=== PATIENT | male | born 1970 | race Two or more races ===

== ENCOUNTER 2018-08-13 02:23 | Emergency (ER) | payer MEDICAID, OTHER ==
[~2018-08-13] VITALS: Ht 177.8 cm; Wt 74.8 kg
[2018-08-13] MEDS ORDERED: KETOROLAC TROMETHAMINE INJ 30 MG/ML VIAL ONE (02:37)
[2018-08-13] MEDS ORDERED: ONDANSETRON HCL/PF 4 MG/2 ML VIAL ONE (02:38)
[2018-08-13] MEDS ORDERED: HYDROMORPHONE 1 MG/1 ML DISP.SYRIN ONE (02:38)
--- NOTE | 2018-08-13 02:50 | NUR ---
PT BIBS. COMP OF "L SIDE FLANK PAIN X2 DAYS, GETTING WORSE TODAY" -SOB, +N/V -DIZZINESS. -AUCTE DISTRESS. AWAITING MD DENG.
[2018-08-13 02:51] LABS: BASOPHILS # (AUTO) 0.1 /CMM (0.0-0.2); BASOPHILS % (AUTO) 1.1 % (0.0-2.0); EOSINOPHILS % (AUTO) 4.7 % (0.0-6.0); HEMATOCRIT 43 % (39-51); HEMOGLOBIN 14.5 g/dL (13.5-17.5); LYMPHOCYTES # (AUTO) 2.6 /CMM (0.8-4.8); LYMPHOCYTES % (AUTO) 33.1 % (20.0-44.0); MEAN CORPUSCULAR HGB CONC 34 g/dl (31.0-36.0); MEAN CORPUSCULAR VOLUME 91 fL (80-96); MONOCYTES # (AUTO) 0.8 /CMM (0.1-1.30); MONOCYTES % (AUTO) 10.2 % (2.0-12.0); NEUTROPHILS % (AUTO) 50.9 % (43.0-81.0); PLATELET COUNT (AUTO) 287 /CMM (150-450); RED BLOOD CELL COUNT(AUTO) 4.68 MIL/uL (4.5-6.0); WHITE BLOOD COUNT (AUTO) 7.9 K/uL (4.3-11.0)
[2018-08-13 02:51] LABS: APPEARANCE,URINE SL CLOUDY (CLEAR); BILIRUBIN,URINE NEGATIVE (NEGATIVE); BLOOD, URINE 3+ Ery/uL (NEGATIVE); COLOR,URINE YELLOW (YELLOW); KETONES,URINE NEGATIVE (NEGATIVE); LEUKOCYTE ESTERASE ,URINE NEGATIVE (NEGATIVE); NITRITE, URINE NEGATIVE (NEGATIVE); PROTEIN,URINE TRACE mg/dl (NEGATIVE); UGLUCOSE NEGATIVE (NEGATIVE); UROBILINOGEN,URINE 0.2 EU/dL (0.2)
[2018-08-13 03:00] LABS: BACTERIA,URINE Few /HPF (None Seen); RBC,URINE TOO NUMEROUS TO COUN /HPF (0-2); SQUAMOUS EPITHELIAL CELL,UR Rare /HPF (None Seen)
[2018-08-13] MEDS ORDERED: ONDANSETRON HCL/PF 4 MG/2 ML VIAL IVP ONE (03:00)
[2018-08-13] MEDS ORDERED: IV NS 0.9% 1,000 ML BAG IV ONE (03:00)
[2018-08-13] MEDS ORDERED: HYDROMORPHONE INJ 2 MG/ML DISP.SYRIN IV ONE (03:00)
[2018-08-13] MEDS ORDERED: KETOROLAC TROMETHAMINE INJ 30 MG/ML VIAL IV ONE (03:00)
[2018-08-13 03:06] LABS: CALCIUM, SERUM 8.9 mg/dL (8.5-10.1); CREATININE 1.1 mg/dL (0.6-1.3); POTASSIUM 3.6 mmol/L (3.5-5.1)
[2018-08-13 03:12] LABS: ALBUMIN 4.1 g/dL (3.4-5.0); BILIRUBIN,DIRECT 0.2 mg/dL (0.0-0.2); BILIRUBIN,TOTAL 1.1 mg/dL (0.2-1.0); TOTAL PROTEIN, SERUM 7.8 g/dL (6.4-8.2)
[2018-08-13] MEDS ORDERED: TAMSULOSIN 0.4 MG CAP.SR.24H ONE (04:28)
[2018-08-13] MEDS ORDERED: TAMSULOSIN 0.4 MG CAP.SR.24H PO ONE (04:30)
[2018-08-13 04:34] VITALS: BP 128/88
== END 2018-08-13 04:35 | disposition home or self-care (01) ==
LOC: ER 02:25
DX: N20.2 Calculus of kidney with calculus of ureter (principal)
CPT/HCPCS: 36415; 80048-TC; 80076-TC; 81000-TC; 83690-TC; 85025-TC; J1170; J1885; J2405; J7030

== ENCOUNTER 2020-12-17 00:20 | Emergency (ER) | payer OTHER ==
[~2020-12-17] VITALS: Ht 177.8 cm; Wt 86.2 kg
[2020-12-17 00:20] VITALS: BP 125/84
--- NOTE | 2020-12-17 00:24 | NUR ---
pt bibself c/o rt eye redness x1day s/p debris flying into eye. Pt [id number] breathing evenly and unlabored. MD at bedside. Per pt, he felt something "fly into my eye and i rinsed it, but i still feel like something is scratching". Pt denies any vision loss. Pt attached to monitor and pox.
[2020-12-17] MEDS ORDERED: FLUORESCEIN SODIUM OPHTH 1 EA STRIP ONE (00:29)
[2020-12-17] MEDS ORDERED: OXYC-580 PO ×2 (00:39→00:42)
[2020-12-17] MEDS ORDERED: ERYT3.5O9 RIGHTEYE (00:39)
[2020-12-17] MEDS ORDERED: HYDROCODONE/APAP 5/325MG TABLET ONE (00:45)
[2020-12-17] MEDS: HYDROCODONE/APAP 5/325MG TABLET PO ONE (00:45)
--- NOTE | 2020-12-17 00:55 | NUR ---
Patient discharged to home in stable condition. Written and verbal after care instructions given. Pt instructed not to drive. Patient verbalizes understanding of instruction. Pt ambulatory with a steady gait
== END 2020-12-17 00:53 | disposition home or self-care (01) ==
LOC: ER 00:28
DX: S05.01XA Injury of conjunctiva and corneal abrasion without foreign body, right eye, initial encounter (principal); X58.XXXA Exposure to other specified factors, initial encounter; Y93.01 Activity, walking, marching and hiking; Y92.89 Other specified places as the place of occurrence of the external cause; Y99.8 Other external cause status